=== PATIENT | female | born 1930 | race Caucasian/White ===

== ENCOUNTER 2019-07-04 15:39 | Inpatient (IN) | END 2019-11-22 23:59 | disposition still patient (30) | DRG 167 | DX: J96.21 Acute and chronic respiratory failure with hypoxia (principal); G93.1 Anoxic brain damage, not elsewhere classified; Z99.11 Dependence on respirator [ventilator] status; N39.0 Urinary tract infection, site not specified; J96.22 Acute and chronic respiratory failure with hypercapnia; I25.10 Atherosclerotic heart disease of native coronary artery without angina pectoris; E03.9 Hypothyroidism, unspecified; Z93.1 Gastrostomy status; Z93.0 Tracheostomy status; Z86.74 Personal history of sudden cardiac arrest; Z95.5 Presence of coronary angioplasty implant and graft; B96.4 Proteus (mirabilis) (morganii) as the cause of diseases classified elsewhere; B96.5 Pseudomonas (aeruginosa) (mallei) (pseudomallei) as the cause of diseases classified elsewhere; D64.9 Anemia, unspecified; E11.9 Type 2 diabetes mellitus without complications; Z79.4 Long term (current) use of insulin; E66.9 Obesity, unspecified; E78.5 Hyperlipidemia, unspecified; I11.0 Hypertensive heart disease with heart failure; I50.9 Heart failure, unspecified; I70.0 Atherosclerosis of aorta; E05.90 Thyrotoxicosis, unspecified without thyrotoxic crisis or storm; I80.8 Phlebitis and thrombophlebitis of other sites; N19 Unspecified kidney failure; I08.0 Rheumatic disorders of both mitral and aortic valves; R56.9 Unspecified convulsions; L89.151 Pressure ulcer of sacral region, stage 1; L89.319 Pressure ulcer of right buttock, unspecified stage; R13.10 Dysphagia, unspecified; Z79.899 Other long term (current) drug therapy; Z88.0 Allergy status to penicillin; Z96.653 Presence of artificial knee joint, bilateral ==

== ENCOUNTER 2019-11-24 16:46 | Inpatient (IN) | payer MEDICARE, OTHER ==
[~2019-11-24] VITALS: Ht 152.4 cm; Wt 73.0 kg
[2019-11-24 17:44] LABS: *BILIRUBIN,URIN NEGATIVE (NEGATIVE); *BLOOD, URINE 2+ (NEGATIVE); *COLOR,URINE YELLOW (YELLOW); *KETONES,URINE NEGATIVE (NEGATIVE); *UROBILINOGEN,URINE 0.2 E.U./dl (NORMAL); LEUKOCYTE ESTERASE ,URINE 2+ (NEGATIVE); NITRITE, URINE NEGATIVE (NEGATIVE); PH,URINE 6.5 (5.0-8.0); UGLUCOSE NEGATIVE (NEGATIVE)
[2019-11-24] MEDS ORDERED: IV NORMAL SALINE 1000 ML BAG IV ONE (17:45)
[2019-11-24 17:46] LABS: BASOPHILS % (AUTO) 0.4 % (0.0-2.0); EOSINOPHILS # (AUTO) 0.4 K/uL (0.0-0.7); EOSINOPHILS % (AUTO) 3.4 % (0.0-7.0); HEMATOCRIT 28.2 % (31.2-41.9); HEMOGLOBIN 9.4 g/dL (10.9-14.3); LYMPHOCYTES % (AUTO) 17.5 % (20.5-51.5); MEAN CORPUSCULAR HEMOGLOBIN 31.8 uug (24.7-32.8); MEAN CORPUSCULAR HGB CONC 33 g/dL (32.3-35.6); MEAN CORPUSCULAR VOLUME 95.4 fL (75.5-95.3); MONOCYTES % (AUTO) 8.6 % (0.0-11.0); NEUTROPHILS # (AUTO) 8.2 K/uL (1.8-8.9); NEUTROPHILS % (AUTO) 70.1 % (38.5-71.5); PLATELET COUNT (AUTO) 241 K/uL (179-408); RED BLOOD CELL COUNT(AUTO) 2.96 MIL/uL (3.63-4.92); WHITE BLOOD COUNT (AUTO) 11.7 K/uL (3.8-11.8)
[2019-11-24 17:52] LABS: BILIRUBIN,DIRECT 0.1 mg/dL (0.0-0.2); BILIRUBIN,TOTAL 0.2 mg/dL (0.2-1.0); CREATININE 0.9 mg/dL (0.6-1.3); POTASSIUM 4.2 mmol/L (3.5-5.1); TOTAL PROTEIN, SERUM 6.6 g/dL (6.4-8.2)
[2019-11-24 18:04] LABS: *CLARITY,URINE HAZY (CLEAR)
[2019-11-24 18:05] LABS: BACTERIA,URINE FEW /HPF (NONE SEEN); SQUAMOUS EPITHELIAL CELL,UR MODERATE /HPF (NONE SEEN); WBC,URINE 20-50 /HPF (0-3)
[2019-11-24] MEDS ORDERED: ALBU2.5V13 IH (18:40)
[2019-11-24] MEDS ORDERED: HYDR1SOL TP ×2 (18:40)
[2019-11-24] MEDS ORDERED: INSU100V28 SQ (18:40)
[2019-11-24] MEDS ORDERED: IPRA0.2S48 NEB ×2 (18:40)
[2019-11-24] MEDS ORDERED: ALBU2.5V13 NEB (18:40)
[2019-11-24] MEDS ORDERED: ONDA4TAB11 GT (18:40)
[2019-11-24] MEDS ORDERED: MODA100T29 GT (18:40)
[2019-11-24] MEDS ORDERED: MUPI1OIN5 (18:40)
[2019-11-24] MEDS ORDERED: METH5POW5 GT (18:40)
[2019-11-24] MEDS ORDERED: CARV3.122 GT (18:40)
[2019-11-24] MEDS ORDERED: NEOM1PAC2 TP (18:40)
[2019-11-24] MEDS ORDERED: ZINC113P3 TP ×2 (18:40)
[2019-11-24] MEDS ORDERED: AMIO200T6 GT (18:40)
[2019-11-24] MEDS ORDERED: PROT30LI GT (18:40)
[2019-11-24] MEDS ORDERED: ATOR20TA GT (18:40)
[2019-11-24] MEDS ORDERED: FAMO20TA8 GT (18:40)
[2019-11-24] MEDS ORDERED: FURO40SO5 GT (18:40)
[2019-11-24] MEDS ORDERED: MODA200T44 GT (18:40)
[2019-11-24] MEDS ORDERED: KETO120S6 TP (18:40)
[2019-11-24] MEDS ORDERED: ASCO-375 GT (18:40)
[2019-11-24] MEDS ORDERED: DOCU100T2 GT (18:40)
[2019-11-24] MEDS ORDERED: LACT1TAB13 GT (18:40)
[2019-11-24] MEDS ORDERED: ARGI1PAC GT (18:40)
[2019-11-24] MEDS ORDERED: vanco (18:40)
[2019-11-24] MEDS ORDERED: BLOO-360 IN (18:40)
[2019-11-24] MEDS ORDERED: INSU100V7 SQ (18:40)
[2019-11-24] MEDS ORDERED: POLY1GRA GT (18:40)
[2019-11-24] MEDS ORDERED: DEXT50VI3 IV (18:40)
[2019-11-24] MEDS ORDERED: ACET160S2 GT ×2 (18:40)
[2019-11-24] MEDS ORDERED: CLOP75TA33 GT (18:40)
[2019-11-24] MEDS ORDERED: VANC500V3 IV (18:40)
[2019-11-24] MEDS ORDERED: [UNRECOGNIZED DRUG - CODE] GT (18:40)
[2019-11-24] MEDS ORDERED: SIME80TA15 GT (18:40)
[2019-11-24] MEDS ORDERED: ENOX30DI5 SQ (18:40)
[2019-11-24] MEDS ORDERED: FERR325T6 GT (18:40)
[2019-11-24] MEDS ORDERED: SPIR25TA6 GT (18:40)
[2019-11-24 20:00] VITALS: BP 122/60
[2019-11-24] MEDS ORDERED: ALBUTEROL SULFATE 2.5 MG/ 0.5 ML NEBU NEB PRN (21:15)
[2019-11-24] MEDS ORDERED: ONDANSETRON 4 MG/2 ML VIAL IV PRN (21:15)
[2019-11-24] MEDS ORDERED: MAGNESIUM HYDROXIDE 30 ML LIQUID UDC PO PRN (21:15)
[2019-11-24] MEDS ORDERED: HYDROCODONE/APAP 5-325MG TABLET PO PRN (21:15)
[2019-11-24] MEDS ORDERED: Z GUARD REMEDY PASTE 57 GM TUBE TOP PRN (21:15)
[2019-11-24] MEDS ORDERED: ZOLPIDEM 5 MG TABLET PO PRN (21:15)
[2019-11-24] MEDS ORDERED: IPRATROPIUM BROMIDE 0.5 MG/2.5 ML NEBU NEB PRN (21:15)
[2019-11-24] MEDS ORDERED: DEXTROSE 50% 50 ML DISP.SYRIN IV PRN (21:30)
[2019-11-24] MEDS: IV D5/ 0.9% NACL 1,000 ML IV PRN (21:52)
[2019-11-24 22:00] VITALS: BP 113/59
[2019-11-24] MEDS ORDERED: VANCOMYCIN IV 1,000 MG in IV DEXTROSE 5% 250 ML IV ONE (23:00)
[2019-11-24] MEDS: IPRATROPIUM BROMIDE 0.5 MG/2.5 ML NEBU NEB SCH (23:12)
[2019-11-25] VITALS (12 sets, daily range): BP systolic 89–122; BP diastolic 47–65
[2019-11-25] MEDS ORDERED: BLOOD SUGAR DIAGNOSTIC 1 EACH STRIP VI SCH
[2019-11-25] MEDS ORDERED: INSULIN REGULAR, HUMAN 300 UNIT/3 ML VIAL ONE (00:03)
[2019-11-25] MEDS ORDERED: VANCOMYCIN IV 200 ML ONE (00:03)
[2019-11-25] MEDS ORDERED: SIMETHICONE 80 MG TAB.CHEW ONE ×2 (00:07→05:27)
[2019-11-25] MEDS: SIMETHICONE 80 MG TAB.CHEW GT SCH ×4 (00:11→18:14)
[2019-11-25] MEDS: BLOOD SUGAR DIAGNOSTIC 1 EACH STRIP VI SCH ×4 (00:14→18:15)
[2019-11-25] MEDS: INSULIN REGULAR, HUMAN 300 UNIT/3 ML VIAL SQ PRN ×5 (00:17→22:02)
[2019-11-25] MEDS: ALBUTEROL SULFATE 2.5 MG/ 0.5 ML NEBU IH SCH ×6 (00:42→23:30)
[2019-11-25] MEDS: IPRATROPIUM BROMIDE 0.5 MG/2.5 ML NEBU NEB SCH ×4 (05:06→20:14)
[2019-11-25 05:23] LABS: BASOPHILS # (AUTO) 0.1 K/uL (0.0-8.0); BASOPHILS % (AUTO) 0.4 % (0.0-2.0); EOSINOPHILS # (AUTO) 0.3 K/uL (0.0-0.7); EOSINOPHILS % (AUTO) 2.4 % (0.0-7.0); HEMATOCRIT 27.4 % (31.2-41.9); HEMOGLOBIN 9.1 g/dL (10.9-14.3); LYMPHOCYTES # (AUTO) 1.6 K/uL (20.0-40.0); LYMPHOCYTES % (AUTO) 13.5 % (20.5-51.5); MEAN CORPUSCULAR HEMOGLOBIN 31.1 uug (24.7-32.8); MEAN CORPUSCULAR HGB CONC 33 g/dL (32.3-35.6); MEAN CORPUSCULAR VOLUME 93.9 fL (75.5-95.3); MONOCYTES # (AUTO) 0.9 K/uL (2.0-10.0); MONOCYTES % (AUTO) 8.1 % (0.0-11.0); NEUTROPHILS # (AUTO) 8.8 K/uL (1.8-8.9); NEUTROPHILS % (AUTO) 75.6 % (38.5-71.5); PLATELET COUNT (AUTO) 251 K/uL (179-408); RED BLOOD CELL COUNT(AUTO) 2.92 MIL/uL (3.63-4.92); WHITE BLOOD COUNT (AUTO) 11.6 K/uL (3.8-11.8)
[2019-11-25] MEDS: FAMOTIDINE 20 MG TABLET GT SCH (05:32)
[2019-11-25 05:40] LABS: CREATININE 0.7 mg/dL (0.6-1.3); MAGNESIUM 2.5 mg/dL (1.8-2.4); PHOSPHOROUS 3.6 mg/dL (2.5-4.9); POTASSIUM 3.7 mmol/L (3.5-5.1)
[2019-11-25] MEDS ORDERED: METHIMAZOLE GT SCH (06:00)
[2019-11-25 06:36] LABS: *OCCULT BLOOD STOOL POSITIVE (NEGATIVE)
[2019-11-25] MEDS ORDERED: KETOCONAZOLE 2% SHAMPOO 120 ML BOTTLE TP SCH (09:00)
[2019-11-25] MEDS: METHIMAZOLE 5 MG TABLET GT SCH (09:07)
[2019-11-25] MEDS: PANTOPRAZOLE SODIUM 40 MG VIAL IV SCH ×2 (09:07→21:55)
[2019-11-25] MEDS: SPIRONOLACTONE 25 MG TABLET GT SCH (09:07)
[2019-11-25] MEDS: AMIODARONE HCL 200 MG TABLET GT SCH (09:08)
[2019-11-25] MEDS: CARVEDILOL 3.125 MG TABLET GT SCH ×2 (09:08→18:14)
[2019-11-25] MEDS: IV D5/ 0.9% NACL 1,000 ML IV PRN (20:16)
[2019-11-25] MEDS: ASCORBIC ACID 500 MG TABLET GT SCH (21:56)
[2019-11-25] MEDS: ATORVASTATIN 20 MG TABLET GT SCH (21:56)
[2019-11-25] MEDS: MUPIROCIN 2% OINT 22 GM TUBE TP SCH (21:57)
[2019-11-25] MEDS: KETOCONAZOLE 2% CREAM 30 GM TUBE TP SCH (21:57)
[2019-11-25] MEDS: INSULIN GLARGINE,HUM 300 UNITS/3 ML CARTRIDGE SQ SCH (22:04)
[2019-11-26] VITALS (8 sets, daily range): BP systolic 108–120; BP diastolic 51–68
[2019-11-26] MEDS: IPRATROPIUM BROMIDE 0.5 MG/2.5 ML NEBU NEB SCH ×7 (00:33→23:23)
[2019-11-26] MEDS: SIMETHICONE 80 MG TAB.CHEW GT SCH (00:43)
[2019-11-26] MEDS: BLOOD SUGAR DIAGNOSTIC 1 EACH STRIP VI SCH ×4 (00:44→17:27)
[2019-11-26] MEDS: INSULIN REGULAR, HUMAN 300 UNIT/3 ML VIAL SQ PRN ×3 (00:47→17:29)
[2019-11-26] MEDS: ALBUTEROL SULFATE 2.5 MG/ 0.5 ML NEBU IH SCH ×6 (02:50→23:24)
[2019-11-26] MEDS: METHIMAZOLE 5 MG TABLET GT SCH (05:17)
[2019-11-26] MEDS: FAMOTIDINE 20 MG TABLET GT SCH (05:18)
[2019-11-26 05:21] LABS: BASOPHILS % (AUTO) 0.5 % (0.0-2.0); EOSINOPHILS # (AUTO) 0.2 K/uL (0.0-0.7); EOSINOPHILS % (AUTO) 1.8 % (0.0-7.0); HEMATOCRIT 25.5 % (31.2-41.9); HEMOGLOBIN 8.6 g/dL (10.9-14.3); LYMPHOCYTES # (AUTO) 1.6 K/uL (20.0-40.0); LYMPHOCYTES % (AUTO) 15.4 % (20.5-51.5); MEAN CORPUSCULAR HEMOGLOBIN 31.9 uug (24.7-32.8); MEAN CORPUSCULAR HGB CONC 34 g/dL (32.3-35.6); MEAN CORPUSCULAR VOLUME 94.3 fL (75.5-95.3); MONOCYTES # (AUTO) 0.8 K/uL (2.0-10.0); MONOCYTES % (AUTO) 7.8 % (0.0-11.0); NEUTROPHILS # (AUTO) 7.9 K/uL (1.8-8.9); NEUTROPHILS % (AUTO) 74.5 % (38.5-71.5); PLATELET COUNT (AUTO) 280 K/uL (179-408); RED BLOOD CELL COUNT(AUTO) 2.71 MIL/uL (3.63-4.92); WHITE BLOOD COUNT (AUTO) 10.6 K/uL (3.8-11.8)
[2019-11-26 05:36] LABS: CREATININE 0.6 mg/dL (0.6-1.3); MAGNESIUM 2.2 mg/dL (1.8-2.4); PHOSPHOROUS 3.3 mg/dL (2.5-4.9); POTASSIUM 3.6 mmol/L (3.5-5.1); VANCOMYCIN,RANDOM 19.6 ug/mL (18.0-26.0)
[2019-11-26 07:45] LABS: ABG BASE EXCESS 1.6 mmol/L; ABG HCO3 24.5 mmol/L; ABG PCO2 31.5 mmHg (35.0-45.0); ABG PH 7.509 (7.350-7.450); ABG SITE LEFT RADIAL; ABG TOTAL HEMOGLOBIN 8.3 G/dL (12.0-16.0); COHb 1.3 % (0.5-1.5); MetHb 0.4 % (0.0-1.5); O2Hb 94.8 % (94.0-97.0); VENT MODE VENT - A/C; VT, ABG 450 mL
[2019-11-26] MEDS: CARVEDILOL 3.125 MG TABLET GT SCH ×2 (09:15→17:27)
[2019-11-26] MEDS: SPIRONOLACTONE 25 MG TABLET GT SCH (09:16)
[2019-11-26] MEDS: AMIODARONE HCL 200 MG TABLET GT SCH (09:16)
[2019-11-26] MEDS: PANTOPRAZOLE SODIUM 40 MG VIAL IV SCH ×2 (09:16→21:59)
[2019-11-26] MEDS: MUPIROCIN 2% OINT 22 GM TUBE TP SCH ×2 (09:17→22:11)
[2019-11-26] MEDS: KETOCONAZOLE 2% CREAM 30 GM TUBE TP SCH ×2 (09:17→22:11)
[2019-11-26] MEDS: IV D5/ 0.9% NACL 1,000 ML IV PRN (15:43)
[2019-11-26] MEDS: VANCOMYCIN IV 1,000 MG in IV DEXTROSE 5% 250 ML IV SCH (17:02)
[2019-11-26] MEDS: ATORVASTATIN 20 MG TABLET GT SCH (22:00)
[2019-11-26] MEDS: ASCORBIC ACID 500 MG TABLET GT SCH (22:00)
[2019-11-26] MEDS: INSULIN GLARGINE,HUM 300 UNITS/3 ML CARTRIDGE SQ SCH (22:10)
[2019-11-27 00:22] VITALS: BP 120/52
[2019-11-27] MEDS: BLOOD SUGAR DIAGNOSTIC 1 EACH STRIP VI SCH ×4 (00:48→18:53)
[2019-11-27 04:00] VITALS: BP 107/49
[2019-11-27] MEDS: IPRATROPIUM BROMIDE 0.5 MG/2.5 ML NEBU NEB SCH ×5 (04:10→22:21)
[2019-11-27] MEDS: ALBUTEROL SULFATE 2.5 MG/ 0.5 ML NEBU IH SCH ×5 (04:11→22:21)
[2019-11-27] MEDS: METHIMAZOLE 5 MG TABLET GT SCH (05:47)
[2019-11-27] MEDS: FAMOTIDINE 20 MG TABLET GT SCH (05:47)
[2019-11-27 06:20] LABS: BASOPHILS # (AUTO) 0.1 K/uL (0.0-8.0); BASOPHILS % (AUTO) 0.5 % (0.0-2.0); EOSINOPHILS # (AUTO) 0.2 K/uL (0.0-0.7); EOSINOPHILS % (AUTO) 2.2 % (0.0-7.0); HEMATOCRIT 25.5 % (31.2-41.9); HEMOGLOBIN 8.6 g/dL (10.9-14.3); LYMPHOCYTES # (AUTO) 1.5 K/uL (20.0-40.0); LYMPHOCYTES % (AUTO) 15.4 % (20.5-51.5); MEAN CORPUSCULAR HEMOGLOBIN 32.2 uug (24.7-32.8); MEAN CORPUSCULAR HGB CONC 34 g/dL (32.3-35.6); MEAN CORPUSCULAR VOLUME 95.2 fL (75.5-95.3); MONOCYTES # (AUTO) 0.9 K/uL (2.0-10.0); MONOCYTES % (AUTO) 9.1 % (0.0-11.0); NEUTROPHILS # (AUTO) 7.3 K/uL (1.8-8.9); NEUTROPHILS % (AUTO) 72.8 % (38.5-71.5); PLATELET COUNT (AUTO) 324 K/uL (179-408); RED BLOOD CELL COUNT(AUTO) 2.68 MIL/uL (3.63-4.92); WHITE BLOOD COUNT (AUTO) 10.1 K/uL (3.8-11.8)
[2019-11-27 06:34] LABS: CREATININE 0.6 mg/dL (0.6-1.3); MAGNESIUM 2.2 mg/dL (1.8-2.4); PHOSPHOROUS 3.6 mg/dL (2.5-4.9); POTASSIUM 3.5 mmol/L (3.5-5.1)
[2019-11-27 08:00] VITALS: BP 121/49
[2019-11-27] MEDS: CARVEDILOL 3.125 MG TABLET GT SCH ×2 (08:00→18:53)
[2019-11-27] MEDS: MUPIROCIN 2% OINT 22 GM TUBE TP SCH ×2 (09:00→23:29)
[2019-11-27] MEDS: KETOCONAZOLE 2% CREAM 30 GM TUBE TP SCH ×2 (10:30→23:30)
[2019-11-27] MEDS: PANTOPRAZOLE SODIUM 40 MG VIAL IV SCH ×2 (10:58→21:00)
[2019-11-27] MEDS: SPIRONOLACTONE 25 MG TABLET GT SCH (10:58)
[2019-11-27] MEDS: AMIODARONE HCL 200 MG TABLET GT SCH (10:58)
[2019-11-27] MEDS ORDERED: DIATR MEGLU/DIATRIZOATE SODIUM 30 ML SOLUTION ONE (11:13)
[2019-11-27 11:50] VITALS: BP 124/55
[2019-11-27 14:07] LABS: *BILIRUBIN,URIN NEGATIVE (NEGATIVE); *BLOOD, URINE 3+ (NEGATIVE); *CLARITY,URINE SLIGHTLY CLOUDY (CLEAR); *COLOR,URINE YELLOW (YELLOW); *KETONES,URINE NEGATIVE (NEGATIVE); LEUKOCYTE ESTERASE ,URINE 3+ (NEGATIVE); NITRITE, URINE NEGATIVE (NEGATIVE); PH,URINE 7.5 (5.0-8.0); UGLUCOSE NEGATIVE (NEGATIVE)
[2019-11-27 14:34] LABS: BACTERIA,URINE MANY /HPF (NONE SEEN); RBC,URINE 20-50 /HPF (0-3); SQUAMOUS EPITHELIAL CELL,UR FEW /HPF (NONE SEEN); TRIPLE PHOSPHATE CRYSTAL,UR FEW /HPF (NONE SEEN); WBC,URINE 20-50 /HPF (0-3)
[2019-11-27] MEDS: IV D5/ 0.9% NACL 1,000 ML IV PRN (17:34)
[2019-11-27 18:00] VITALS: BP 106/54
[2019-11-27 20:39] VITALS: BP 126/59
[2019-11-27] MEDS: ASCORBIC ACID 500 MG TABLET GT SCH (20:59)
[2019-11-27] MEDS: ATORVASTATIN 20 MG TABLET GT SCH (20:59)
[2019-11-27] MEDS: VANCOMYCIN IV 1,000 MG in IV DEXTROSE 5% 250 ML IV SCH (21:02)
[2019-11-27] MEDS: INSULIN GLARGINE,HUM 300 UNITS/3 ML CARTRIDGE SQ SCH (21:17)
[2019-11-28] MEDS: IPRATROPIUM BROMIDE 0.5 MG/2.5 ML NEBU NEB SCH ×7 (00:08→22:53)
[2019-11-28] MEDS: ALBUTEROL SULFATE 2.5 MG/ 0.5 ML NEBU IH SCH ×7 (00:08→22:53)
[2019-11-28] MEDS: BLOOD SUGAR DIAGNOSTIC 1 EACH STRIP VI SCH ×4 (00:42→17:24)
[2019-11-28] MEDS: INSULIN REGULAR, HUMAN 300 UNIT/3 ML VIAL SQ PRN (00:49)
[2019-11-28 04:00] VITALS: BP 130/67
[2019-11-28 05:05] LABS: BASOPHILS # (AUTO) 0.1 K/uL (0.0-8.0); BASOPHILS % (AUTO) 0.8 % (0.0-2.0); EOSINOPHILS # (AUTO) 0.2 K/uL (0.0-0.7); EOSINOPHILS % (AUTO) 2.4 % (0.0-7.0); HEMATOCRIT 24.9 % (31.2-41.9); HEMOGLOBIN 8.4 g/dL (10.9-14.3); LYMPHOCYTES # (AUTO) 1.3 K/uL (20.0-40.0); LYMPHOCYTES % (AUTO) 13.1 % (20.5-51.5); MEAN CORPUSCULAR HEMOGLOBIN 31.8 uug (24.7-32.8); MEAN CORPUSCULAR HGB CONC 34 g/dL (32.3-35.6); MEAN CORPUSCULAR VOLUME 94.7 fL (75.5-95.3); MONOCYTES # (AUTO) 0.9 K/uL (2.0-10.0); MONOCYTES % (AUTO) 8.8 % (0.0-11.0); NEUTROPHILS # (AUTO) 7.4 K/uL (1.8-8.9); NEUTROPHILS % (AUTO) 74.9 % (38.5-71.5); PLATELET COUNT (AUTO) 330 K/uL (179-408); RED BLOOD CELL COUNT(AUTO) 2.62 MIL/uL (3.63-4.92); WHITE BLOOD COUNT (AUTO) 9.9 K/uL (3.8-11.8)
[2019-11-28 05:10] LABS: CREATININE 0.6 mg/dL (0.6-1.3); PHOSPHOROUS 3.3 mg/dL (2.5-4.9); POTASSIUM 3.4 mmol/L (3.5-5.1)
[2019-11-28] MEDS: METHIMAZOLE 5 MG TABLET GT SCH (05:48)
[2019-11-28] MEDS: MUPIROCIN 2% OINT 22 GM TUBE TP SCH ×2 (07:51→20:56)
[2019-11-28] MEDS: KETOCONAZOLE 2% CREAM 30 GM TUBE TP SCH ×2 (07:51→20:58)
[2019-11-28] MEDS: PANTOPRAZOLE SODIUM 40 MG VIAL IV SCH ×2 (07:51→20:53)
[2019-11-28] MEDS: AMIODARONE HCL 200 MG TABLET GT SCH (07:54)
[2019-11-28] MEDS: CARVEDILOL 3.125 MG TABLET GT SCH ×2 (07:54→17:04)
[2019-11-28 08:00] VITALS: BP 139/79
[2019-11-28] MEDS: SPIRONOLACTONE 25 MG TABLET GT SCH (08:38)
[2019-11-28 12:00] VITALS: BP 135/66
[2019-11-28] MEDS ORDERED: BUMETANIDE INJ 6 MG in IV DEXTROSE 5% 36 ML IV ONE (12:45)
[2019-11-28 16:00] VITALS: BP 147/54
[2019-11-28] MEDS ORDERED: POTASSIUM CHLORIDE 20 MEQ POWDER PACKET GT ONE (17:00)
[2019-11-28] MEDS: GENTAMICIN SULFATE INJ 80 MG in IV DEXTROSE 5% 50 ML IV SCH (17:03)
[2019-11-28 20:00] VITALS: BP 131/69
[2019-11-28] MEDS: ATORVASTATIN 20 MG TABLET GT SCH (20:53)
[2019-11-28] MEDS: ASCORBIC ACID 500 MG TABLET GT SCH (20:53)
[2019-11-28] MEDS: INSULIN GLARGINE,HUM 300 UNITS/3 ML CARTRIDGE SQ SCH (20:55)
[2019-11-28] MEDS: VANCOMYCIN IV 1,000 MG in IV DEXTROSE 5% 250 ML IV SCH (23:51)
[2019-11-29] VITALS: BP 139/73
[2019-11-29] MEDS: BLOOD SUGAR DIAGNOSTIC 1 EACH STRIP VI SCH ×5 (00:06→23:41)
[2019-11-29] MEDS: INSULIN REGULAR, HUMAN 300 UNIT/3 ML VIAL SQ PRN ×3 (00:08→17:48)
[2019-11-29] MEDS: IPRATROPIUM BROMIDE 0.5 MG/2.5 ML NEBU NEB SCH ×6 (03:26→22:43)
[2019-11-29] MEDS: ALBUTEROL SULFATE 2.5 MG/ 0.5 ML NEBU IH SCH ×6 (03:26→22:43)
[2019-11-29 04:00] VITALS: BP 133/74
[2019-11-29 05:13] LABS: BASOPHILS # (AUTO) 0.1 K/uL (0.0-8.0); BASOPHILS % (AUTO) 0.6 % (0.0-2.0); EOSINOPHILS # (AUTO) 0.2 K/uL (0.0-0.7); EOSINOPHILS % (AUTO) 2.1 % (0.0-7.0); HEMATOCRIT 28.2 % (31.2-41.9); HEMOGLOBIN 9.4 g/dL (10.9-14.3); LYMPHOCYTES # (AUTO) 1.2 K/uL (20.0-40.0); LYMPHOCYTES % (AUTO) 11.7 % (20.5-51.5); MEAN CORPUSCULAR HEMOGLOBIN 31.8 uug (24.7-32.8); MEAN CORPUSCULAR HGB CONC 33 g/dL (32.3-35.6); MEAN CORPUSCULAR VOLUME 95.1 fL (75.5-95.3); MONOCYTES # (AUTO) 0.9 K/uL (2.0-10.0); MONOCYTES % (AUTO) 9.2 % (0.0-11.0); NEUTROPHILS # (AUTO) 7.7 K/uL (1.8-8.9); NEUTROPHILS % (AUTO) 76.4 % (38.5-71.5); PLATELET COUNT (AUTO) 367 K/uL (179-408); RED BLOOD CELL COUNT(AUTO) 2.97 MIL/uL (3.63-4.92)
[2019-11-29] MEDS: IV D5/ 0.9% NACL 1,000 ML IV PRN (05:20)
[2019-11-29] MEDS: METHIMAZOLE 5 MG TABLET GT SCH (05:38)
[2019-11-29 05:50] LABS: CREATININE 0.7 mg/dL (0.6-1.3); MAGNESIUM 1.9 mg/dL (1.8-2.4); PHOSPHOROUS 3.2 mg/dL (2.5-4.9); POTASSIUM 3.1 mmol/L (3.5-5.1)
[2019-11-29 08:00] VITALS: BP 122/54
[2019-11-29] MEDS: CARVEDILOL 3.125 MG TABLET GT SCH ×2 (08:19→17:29)
[2019-11-29] MEDS: PANTOPRAZOLE SODIUM 40 MG VIAL IV SCH ×2 (08:19→21:23)
[2019-11-29] MEDS: AMIODARONE HCL 200 MG TABLET GT SCH (08:19)
[2019-11-29] MEDS: SPIRONOLACTONE 25 MG TABLET GT SCH (08:19)
[2019-11-29] MEDS: MUPIROCIN 2% OINT 22 GM TUBE TP SCH ×2 (08:21→21:36)
[2019-11-29] MEDS: KETOCONAZOLE 2% CREAM 30 GM TUBE TP SCH ×2 (08:21→21:36)
[2019-11-29] MEDS ORDERED: POTASSIUM CHLORIDE 20 MEQ POWDER PACKET GT ONE (10:00)
[2019-11-29 10:15] LABS: ABG BASE EXCESS -1.1 mmol/L; ABG HCO3 21.6 mmol/L; ABG PCO2 28.5 mmHg (35.0-45.0); ABG PH 7.498 (7.350-7.450); ABG PO2 83.3 mmHg (75.0-100.0); ABG SITE RIGHT RADIAL; ABG TOTAL HEMOGLOBIN 8.1 G/dL (12.0-16.0); COHb 1.9 % (0.5-1.5); MetHb 0.3 % (0.0-1.5); O2Hb 94.9 % (94.0-97.0); VENT MODE VENT - A/C 12; VT, ABG 400 mL
[2019-11-29 12:00] VITALS: BP 129/53
[2019-11-29 16:00] VITALS: BP 107/74
[2019-11-29] MEDS: GENTAMICIN SULFATE INJ 80 MG in IV DEXTROSE 5% 50 ML IV SCH (17:28)
[2019-11-29] MEDS ORDERED: GLUCERNA 1.2 1000ML LIQUID GT PRN (17:30)
[2019-11-29 20:30] VITALS: BP 134/41
[2019-11-29] MEDS: ASCORBIC ACID 500 MG TABLET GT SCH (21:23)
[2019-11-29] MEDS: INSULIN GLARGINE,HUM 300 UNITS/3 ML CARTRIDGE SQ SCH (21:25)
[2019-11-29] MEDS: ATORVASTATIN 20 MG TABLET GT SCH (21:34)
[2019-11-29] MEDS: ACETAMINOPHEN 325 MG TABLET PO PRN (23:44)
[2019-11-30] VITALS: BP 92/36
[2019-11-30] MEDS: IPRATROPIUM BROMIDE 0.5 MG/2.5 ML NEBU NEB SCH ×4 (02:41→14:44)
[2019-11-30] MEDS: ALBUTEROL SULFATE 2.5 MG/ 0.5 ML NEBU IH SCH ×4 (02:42→14:44)
[2019-11-30] MEDS: VANCOMYCIN IV 1,000 MG in IV DEXTROSE 5% 250 ML IV SCH (03:32)
[2019-11-30 04:00] VITALS: BP 110/68
[2019-11-30] MEDS: BLOOD SUGAR DIAGNOSTIC 1 EACH STRIP VI SCH ×2 (05:41→12:12)
[2019-11-30] MEDS: METHIMAZOLE 5 MG TABLET GT SCH (05:42)
[2019-11-30] MEDS: INSULIN REGULAR, HUMAN 300 UNIT/3 ML VIAL SQ PRN ×2 (05:49→12:13)
[2019-11-30 07:50] VITALS: BP 108/52
[2019-11-30] MEDS: CARVEDILOL 3.125 MG TABLET GT SCH (08:27)
[2019-11-30] MEDS: SPIRONOLACTONE 25 MG TABLET GT SCH (08:27)
[2019-11-30] MEDS: PANTOPRAZOLE SODIUM 40 MG VIAL IV SCH (08:27)
[2019-11-30] MEDS: AMIODARONE HCL 200 MG TABLET GT SCH (08:28)
[2019-11-30] MEDS: ACETAMINOPHEN 325 MG TABLET PO PRN (08:28)
[2019-11-30] MEDS: MUPIROCIN 2% OINT 22 GM TUBE TP SCH (08:29)
[2019-11-30] MEDS: KETOCONAZOLE 2% CREAM 30 GM TUBE TP SCH (08:30)
[2019-11-30 12:15] VITALS: BP 122/53
[2019-11-30] MEDS: GENTAMICIN SULFATE INJ 80 MG in IV DEXTROSE 5% 50 ML IV SCH (15:27)
[2019-11-30] MEDS ORDERED: PROPOFOL 200 MG/20 ML BOTTLE IV ONE (16:54)
[2019-11-30] MEDS ORDERED: IV NORMAL SALINE 1000 ML BAG IV ONE (16:54)
[2019-11-30] MEDS ORDERED: EPHEDRINE SULFATE 50 MG/ML AMPUL IM ONE (16:54)
[2019-11-30] MEDS ORDERED: IRR STERIL WATER FOR IRR 1000 ML BOTTLE IR ONE (16:54)
== END 2019-11-30 16:55 | DRG 378 ==
LOC: ER 16:46 → CCU 18:30 → TELE-TD3 11-26 08:10 → CCU 11-28 01:18 → TELE 11-29 20:01 → TELE3 11-29 20:05 → TELE-TD3 11-29 20:08
PROVIDERS: ADMIT Internal Medicine; ATTEND Internal Medicine
PROC: 5A1955Z Respiratory Ventilation, Greater than 96 Consecutive Hours (ICD-10-PCS; principal; 2019-11-24)
PROC: 05H933Z Insertion of Infusion Device into Right Brachial Vein, Percutaneous Approach (ICD-10-PCS; 2019-11-25)
PROC: 0DB98ZX Excision of Duodenum, Via Natural or Artificial Opening Endoscopic, Diagnostic (ICD-10-PCS; 2019-11-27)
PROC: 0W9B3ZX Drainage of Left Pleural Cavity, Percutaneous Approach, Diagnostic (ICD-10-PCS; 2019-11-28)
DX: K29.81 Duodenitis with bleeding (principal); D62 Acute posthemorrhagic anemia; J98.19 Other pulmonary collapse; Z99.11 Dependence on respirator [ventilator] status; G93.1 Anoxic brain damage, not elsewhere classified; J96.12 Chronic respiratory failure with hypercapnia; J96.11 Chronic respiratory failure with hypoxia; J90 Pleural effusion, not elsewhere classified; N39.0 Urinary tract infection, site not specified; Z16.29 Resistance to other single specified antibiotic; Z93.0 Tracheostomy status; Z86.74 Personal history of sudden cardiac arrest; Z93.1 Gastrostomy status; K29.80 Duodenitis without bleeding; K44.9 Diaphragmatic hernia without obstruction or gangrene; I25.10 Atherosclerotic heart disease of native coronary artery without angina pectoris; Z95.5 Presence of coronary angioplasty implant and graft; B96.4 Proteus (mirabilis) (morganii) as the cause of diseases classified elsewhere; Z88.0 Allergy status to penicillin; Z82.49 Family history of ischemic heart disease and other diseases of the circulatory system; Z83.3 Family history of diabetes mellitus; R13.10 Dysphagia, unspecified; E87.6 Hypokalemia; E66.9 Obesity, unspecified; E78.5 Hyperlipidemia, unspecified; I11.0 Hypertensive heart disease with heart failure; I50.9 Heart failure, unspecified; L89.319 Pressure ulcer of right buttock, unspecified stage; E11.9 Type 2 diabetes mellitus without complications; E05.90 Thyrotoxicosis, unspecified without thyrotoxic crisis or storm; R56.9 Unspecified convulsions
CPT/HCPCS: 32555; 36415; 36600; 70030-TC; 71045; 76604; 83615; 83690; 83735; 83986; 84100; 84155; 85025; 85610; 85730; 87070; 87077; 87086; 87205; 93005; 94002; 94003; 94640; 94664; A4217; A4663; C9113; G0378; J1580; J1815; J3370; J3490; J3590; J7030; J7042; J7050; J7060; J7070; Q9963

== ENCOUNTER 2020-06-13 09:24 | Inpatient (IN) | payer MEDICARE, OTHER ==
[~2020-06-13] VITALS: Ht 147.3 cm; Wt 76.2 kg
--- NOTE | 2020-06-13 09:15 | NUR ---
ADMITTED FROM 4TH FLOOR [facility] SUB-ACUTE TO [id number] AN 89 YO FEMALE WITH ADM DX OF ANEMIA, CHF, GASTROCUTANEOUS FISTULA, VDRS, LOW K. OBTUNDED ON TRACH VIA VENT SHILEY 6, FIO2=2L/MIN BLEND, QO=934, AC-2, PEEP=5 ON CONTINUOUS PULSE OX SATURATING 100%. SR ON MONITOR 88/MIN. WARM AND DRY SKIN. ROUTINE ADMISSION ASSESSMENT INITIATED.
[~2020-06-13 09:24] MED LIST: ACET160S2 GT; ACET160S2 RC; ALBU2.5V13 IH; ALBU2.5V13 NEB; AMIO200T6 GT; ARGI1PAC GT; ASCO-375 GT; ATOR20TA GT; BLOO-360 IN; CARV3.122 GT; CLOP75TA33 GT; DEXT50VI3 IV; DOCU100T2 GT; ENOX30DI5 SQ; FAMO20TA8 GT; FERR325T6 GT; FURO40SO5 GT; HYDR1SOL TP; INSU100V28 SQ; INSU100V7 SQ; IPRA0.2S48 NEB; KETO120S6 TP; LACT1TAB13 GT; METH5POW5 GT; MODA100T29 GT; MODA200T44 GT; MUPI1OIN5; NEOM1PAC2 TP; ONDA4TAB11 GT; POLY1GRA GT; PROT30LI GT; SIME80TA15 GT; SPIR25TA6 GT; VANC500V3 IV; ZINC113P3 TP; [UNRECOGNIZED DRUG - CODE] GT
--- NOTE | 2020-06-13 09:48 | NUR ---
SEEN BY DR BULLARD DICTATED ADM. SUMMARY. SEE NOTES. WILL NOTIFY DR BERNAL OF ADMISSION
[2020-06-13] MEDS ORDERED: ALBU2.5V13 NEB (10:54)
[2020-06-13] MEDS ORDERED: COD56OIN TP (10:54)
[2020-06-13] MEDS ORDERED: TPN (10:54)
[2020-06-13] MEDS ORDERED: BLOO-668 IN (10:54)
[2020-06-13] MEDS ORDERED: CYCL30DR EACHEYE (10:54)
[2020-06-13] MEDS ORDERED: NEOM28OI22 TP (10:54)
[2020-06-13] MEDS ORDERED: HYDR1TOW4 TP (10:54)
[2020-06-13] MEDS ORDERED: ACET160T6 RC (10:54)
[2020-06-13] MEDS ORDERED: IPRA0.2S6 NEB (10:54)
[2020-06-13] MEDS ORDERED: DEXTROSE 50% 50 ML DISP.SYRIN IV PRN (11:00)
--- NOTE | 2020-06-13 11:00 | NUR ---
SEEN BY DR BERNAL FOR ADMISSION ORDERS, SEE NOTES
[2020-06-13] MEDS ORDERED: BUMETANIDE 1 MG/4 ML VIAL IV ONE (11:30)
[2020-06-13 12:00] VITALS: BP 149/59
[2020-06-13] MEDS: MAGNESIUM SULFATE/D5W 100 ML IV SCH ×3 (12:23→14:46)
[2020-06-13] MEDS: INSULIN REGULAR, HUMAN 300 UNIT/3 ML VIAL SQ PRN ×2 (12:36→17:31)
[2020-06-13] MEDS: BLOOD SUGAR DIAGNOSTIC 1 EACH STRIP VI SCH ×2 (12:37→17:32)
[2020-06-13] MEDS ORDERED: COD LIVER OIL/ZINC OXIDE OINT 113 GM TUBE TP PRN ×2 (13:45→14:30)
[2020-06-13] MEDS ORDERED: INSULIN REGULAR, HUMAN 300 UNIT/3 ML VIAL SQ PRN (13:45)
[2020-06-13] MEDS ORDERED: ALBUTEROL SULFATE 2.5 MG/ 0.5 ML NEBU NEB PRN (13:45)
[2020-06-13] MEDS ORDERED: IPRATROPIUM BROMIDE 0.5 MG/2.5 ML NEBU NEB PRN ×2 (13:45)
[2020-06-13] MEDS ORDERED: ONDANSETRON ODT 4 MG TAB.RAPDIS GT SCH (13:45)
[2020-06-13] MEDS ORDERED: POTASSIUM PHOSPHATE MM 15 MMOL in IV NORMAL SALINE 250 ML IV ONE (15:00)
[2020-06-13] MEDS: POTASSIUM CHLORIDE 50 ML IV SCH ×4 (15:38→19:24)
--- NOTE | 2020-06-13 15:48 | NUR ---
SON NOTIFIED OF NEED FOR CONSENT FOR EGD WITH FISTULA AND CLOSURE BY DR LIND AT 1200 06/14/20
[2020-06-13 16:00] VITALS: BP 120/57
[2020-06-13] MEDS: IPRATROPIUM BROMIDE 0.5 MG/2.5 ML NEBU NEB SCH ×3 (16:23→23:40)
[2020-06-13] MEDS: ALBUTEROL SULFATE 2.5 MG/ 0.5 ML NEBU NEB PRN (16:23)
[2020-06-13] MEDS ORDERED: BLOOD SUGAR DIAGNOSTIC 1 EACH STRIP VI SCH ×2 (18:00)
[2020-06-13] MEDS ORDERED: SIMETHICONE 80 MG TAB.CHEW GT SCH (18:00)
[2020-06-13] MEDS ORDERED: TPN BAG#7 IV SCH ×4 (18:00)
--- NOTE | 2020-06-13 19:00 | NUR ---
RECEIVED PATIENT IN BED, EYES OPEN, RESPOND TO PAINFUL AND TACTILE STIMULI. HOB ELEVATED, TRACH INTACT, S/S OF SOB NOR CHEST PAIN. PATIENT ON VENT TOLERATE WELL NO DESATURATION NOTED. PATIENT ALCALA CATH PATENT DRAINING WITH YELLOW COLOR WENDY COLOR. PATIENT OLD GT WOUND TX CONTINUE. R UPPER ARM PICC LINE PATENT, PATIENT HAS NO S/S OF DISTRESS. CONT TO MONITOR.
[2020-06-13 20:03] VITALS: BP 140/56
[2020-06-13] MEDS ORDERED: KETOCONAZOLE 2% SHAMPOO 120 ML BOTTLE TP SCH (21:00)
[2020-06-13] MEDS ORDERED: NEOMY/BACITRA/POLYMYXIN B OINT UD PACKET TP SCH (21:00)
[2020-06-13] MEDS ORDERED: ATORVASTATIN 20 MG TABLET GT SCH (21:00)
[2020-06-13] MEDS ORDERED: CLOPIDOGREL 75 MG TABLET GT SCH (21:00)
[2020-06-13] MEDS ORDERED: ASCORBIC ACID 500 MG TABLET GT SCH (21:00)
[2020-06-13] MEDS ORDERED: ENOXAPARIN SODIUM 30 MG/0.3 ML DISP.SYRIN SQ SCH (21:00)
[2020-06-13] MEDS ORDERED: CARVEDILOL 3.125 MG TABLET GT SCH (21:00)
[2020-06-13] MEDS: NEOMY/BACITRA/POLYMYXIN B OINT UD PACKET TP SCH (21:51)
--- NOTE | 2020-06-13 23:41 | NUR ---
PT ON CONT VENT HT [address] AND SECURED, WITH SAME CURRENT VENT SETTINGS, PT DOES ASIST AT TIMES, GOOD COUGH EFFORT, SUCTIONED LIGHT PALE YELL TINGE SECRETIONS, NO VENT CHANGES MADE, ALL VENT ALARMS OK, NEB INLINE WITH ATROVENT TOLL WELL, WITH PULSE OXY ON CONT - SAT 98-99%. Mariluz RICKETTS VENTILATION MECHANIC Addendum: 06/13/20 at 2347 by CORRINE RICKETTS RT Amended: Links added.
[2020-06-14] VITALS (8 sets, daily range): BP systolic 116–155; BP diastolic 41–71
[2020-06-14] MEDS: BLOOD SUGAR DIAGNOSTIC 1 EACH STRIP VI SCH ×4 (01:23→18:00)
[2020-06-14] MEDS: INSULIN REGULAR, HUMAN 300 UNIT/3 ML VIAL SQ PRN ×4 (01:25→18:01)
[2020-06-14] MEDS: IPRATROPIUM BROMIDE 0.5 MG/2.5 ML NEBU NEB SCH ×5 (04:50→20:00)
[2020-06-14] MEDS ORDERED: TPN BAG #8 IV SCH ×2 (06:00)
[2020-06-14] MEDS ORDERED: FAMOTIDINE 20 MG TABLET GT SCH (06:00)
[2020-06-14 06:33] LABS: BASOPHILS # (AUTO) 0.1 K/uL (0.0-8.0); BASOPHILS % (AUTO) 0.6 % (0.0-2.0); EOSINOPHILS # (AUTO) 0.2 K/uL (0.0-0.7); EOSINOPHILS % (AUTO) 1.6 % (0.0-7.0); HEMATOCRIT 30.3 % (31.2-41.9); LYMPHOCYTES # (AUTO) 1.2 K/uL (20.0-40.0); MEAN CORPUSCULAR HEMOGLOBIN 28.9 uug (24.7-32.8); MEAN CORPUSCULAR HGB CONC 33 g/dL (32.3-35.6); MEAN CORPUSCULAR VOLUME 87.3 fL (75.5-95.3); MONOCYTES # (AUTO) 0.7 K/uL (2.0-10.0); MONOCYTES % (AUTO) 6.9 % (0.0-11.0); NEUTROPHILS # (AUTO) 8.5 K/uL (1.8-8.9); NEUTROPHILS % (AUTO) 79.9 % (38.5-71.5); PLATELET COUNT (AUTO) 268 K/uL (179-408); RED BLOOD CELL COUNT(AUTO) 3.47 MIL/uL (3.63-4.92); WHITE BLOOD COUNT (AUTO) 10.7 K/uL (3.8-11.8)
[2020-06-14 06:48] LABS: MAGNESIUM 2.1 mg/dL (1.8-2.4)
--- NOTE | 2020-06-14 07:27 | NUR ---
Patient eyes open obtunded, no s/s of sob or chest pain. patient cont on ppn tolerate well. patient old gt site draining with black greenish fluid in small amount. Patient trach intact, suction q 2 hrs and prn, with whitish yellow secretions in moderate amount. Patient has generalized edema, kept arms elevated with pillow, rendered good skin care, boss cath patent with yellow, kiesha color urine in moderate amount. Patient on ventilator per setting, no s/s of desaturation, kept comfortable. cont to monitor.
[2020-06-14 07:36] LABS: CREATININE 0.8 mg/dL (0.6-1.3); POTASSIUM 3.5 mmol/L (3.5-5.1)
[2020-06-14] MEDS: ALBUTEROL SULFATE 2.5 MG/ 0.5 ML NEBU NEB PRN ×3 (07:51→14:36)
--- NOTE | 2020-06-14 07:51 | NUR ---
PT RECEIVED TRACH TO VENT ON CMV, SHILEY #6 TRACH IS PATENT AND SECURE. PT IS ON A HT-50 VENT ON SETTINGS OF A/C 12, VT 400, PEEP +5, 2LPM BLEED-IN O2. VENT PARAMETERS AND ALARMS CHECKED, ALARMS ARE AUDIBLE. PT IS TOLERATING VENT SETTINGS WELL, NO RESP. DISTRESS NOTED. IN-LINE TX TOLERATED WELL, NO ADVERSE REACTION NOTED. BVM AND BACK-UP TRACH AT BEDSIDE. VENT PLUGGED INTO RED OUTLET. SUCTION PRN. WILL CONTINUE TO MONITOR.
--- NOTE | 2020-06-14 08:00 | NUR ---
Patient in bed, trach tube intact and midline, connected to ventilator with settings AC 12 VT 400 Peep +5 FiO2 20%, No signs of distress noted. Afebrile. No signs of Pain or discomfort. patient will have EGD and closure of Fistula at 1PM under Dr. Rivera. TPN at 65cc/hr infusing well on SIN PICC, Kept clean and comfortable. Will continue to monitor.
[2020-06-14] MEDS ORDERED: AMIODARONE HCL 200 MG TABLET GT SCH (09:00)
[2020-06-14] MEDS ORDERED: SPIRONOLACTONE 25 MG TABLET GT SCH (09:00)
[2020-06-14] MEDS: NEOMY/BACITRA/POLYMYXIN B OINT UD PACKET TP SCH ×2 (09:05→21:00)
[2020-06-14 09:41] LABS: ABG BASE EXCESS -1.1 mmol/L; ABG HCO3 23.4 mmol/L; ABG PCO2 38.3 mmHg (35.0-45.0); ABG PH 7.404 (7.350-7.450); ABG PO2 109.8 mmHg (75.0-100.0); ABG SITE RIGHT RADIAL; ABG TOTAL HEMOGLOBIN 10.1 G/dL (12.0-16.0); COHb 0.7 % (0.5-1.5); MetHb 0.1 % (0.0-1.5); O2Hb 97.2 % (94.0-97.0); VENT MODE VENT - A/C; VT, ABG 400 mL
[2020-06-14] MEDS ORDERED: FUROSEMIDE 40 MG/4 ML VIAL IV ONE (12:30)
--- NOTE | 2020-06-14 12:52 | NUR ---
Patient was picked up for EGD with possible closure of Fistula.
[2020-06-14] MEDS ORDERED: MODAFINIL 100 MG TABLET GT SCH (13:00)
[2020-06-14] MEDS ORDERED: FENTANYL CITRATE 100 MCG/2 ML AMPUL ONE (13:12)
[2020-06-14] MEDS ORDERED: ETOMIDATE 20 MG/10 ML VIAL ONE (14:27)
[2020-06-14] MEDS ORDERED: IV NORMAL SALINE 1000 ML BAG ONE (14:27)
[2020-06-14] MEDS ORDERED: PHENYLEPHRINE 10 MG/1 ML VIAL ONE (14:27)
[2020-06-14] MEDS ORDERED: IV NORMAL SALINE 250 ML BAG IV ONE (14:27)
--- NOTE | 2020-06-14 14:42 | NUR ---
Per Dr. 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
--- NOTE | 2020-06-14 14:42 | NUR ---
Patient came back from Surgery in stable condition.
[2020-06-14] MEDS ORDERED: IV FAT EMULSIONS 20% 250 ML IV ONE ×2 (15:00)
[2020-06-14] MEDS ORDERED: TPN BAG #9 IV SCH ×4 (18:00)
--- NOTE | 2020-06-14 18:35 | NUR ---
patient in bed, Trach tube intact and midline. No signs of distress noted. NO SOB. NO signs of Pain or discomfort. Afebrile. S/P EGD with closure of fistula, TPN infusing well on SIN PICC. last Blood sugar was 149, 2 units given as per sliding scale. kept clean and comfortable. Will endorse to Oncoming Nurse.
--- NOTE | 2020-06-14 20:59 | NUR ---
Received patient from third floor Telemetry-TD. Patient is supine in bed with eyes open responsive only to stimuli, otherwise obtunded. Patient has a tracheostomy to vent with a Shiley #6, stoma looks clear, no secretions or signs of irritation or bleeding. Respiratory has set up a Lovell ventilator with settings AC 12, Vt400, FiO2 28%, PEEP 5. Patient connected to the bedside monitor and noted to be in Sinus Rhythm with notable ST segment depression, which on viewing of the ECG tracing on 06/13/2020, this abnormality was also present. MDs aware of ECG abnormality, no further action necessary. Patient has a left upper arm PICC line. Patient is currently receiving TPN infusion @65mL/hr and 20% IV Intralipid infusion running @10.417mL/hr. Patient has a Bryant catheter draining clear yellow fluid in adequate amounts. There is also a collection bag over the GT site fistula. Patient went for repair of this fistula earlier on in the day, however operating MD believes that despite his efforts, closure of the fistula was not likely to be successful. This fistula is currently draining small amounts of brown/yellow material of a viscous consistency. Patient is noted to be in stable condition. Plan of care to continue TPN nutrition, and monitoring GT fistula site for signs of breakdown from gastric contents. Dr. Zurita to consult with surgery on further plan of treatment for the GT fistula.
[2020-06-15] VITALS (24 sets, daily range): BP systolic 123–174; BP diastolic 50–88
[2020-06-15] MEDS: IPRATROPIUM BROMIDE 0.5 MG/2.5 ML NEBU NEB SCH ×7 (00:14→23:23)
[2020-06-15] MEDS: INSULIN REGULAR, HUMAN 300 UNIT/3 ML VIAL SQ PRN ×4 (00:19→23:53)
--- NOTE | 2020-06-15 00:19 | NUR ---
PT ON CONT CANCINO VENT WITH SHILEY [address] AND SECURED, WITH SAME CURRENT VENT SETTINGS, A/C 12, VT 400ML, 28%, PEEP 5, PT CAME TO CCU # 4 APPROX, 21:00, WITH RT ASSIST, SUCTIONED WHITISH TINGE SECRETIONS, AND ORAL CARE , CHANGE HME, AND FABIO CERON INLINE WITH ATROVENT TOLL WELL, ALL VENT ALARMS GOOD , VENT PLUGGED INTO RED OUTLET. Mariluz GONZALEZP Addendum: 06/15/20 at 0025 by CORRINE RICKETTS RT Amended: Links added.
[2020-06-15] MEDS: BLOOD SUGAR DIAGNOSTIC 1 EACH STRIP VI SCH ×5 (00:24→23:52)
[2020-06-15 05:24] LABS: CREATININE 0.7 mg/dL (0.6-1.3); MAGNESIUM 1.7 mg/dL (1.8-2.4); PHOSPHOROUS 2.5 mg/dL (2.5-4.9)
[2020-06-15 05:27] LABS: BASOPHILS # (AUTO) 0.1 K/uL (0.0-8.0); BASOPHILS % (AUTO) 0.6 % (0.0-2.0); EOSINOPHILS # (AUTO) 0.2 K/uL (0.0-0.7); EOSINOPHILS % (AUTO) 1.6 % (0.0-7.0); HEMATOCRIT 28.8 % (31.2-41.9); HEMOGLOBIN 9.7 g/dL (10.9-14.3); LYMPHOCYTES # (AUTO) 1.4 K/uL (20.0-40.0); LYMPHOCYTES % (AUTO) 9.8 % (20.5-51.5); MEAN CORPUSCULAR HEMOGLOBIN 28.9 uug (24.7-32.8); MEAN CORPUSCULAR HGB CONC 34 g/dL (32.3-35.6); MEAN CORPUSCULAR VOLUME 86.2 fL (75.5-95.3); MONOCYTES % (AUTO) 6.7 % (0.0-11.0); NEUTROPHILS # (AUTO) 11.5 K/uL (1.8-8.9); NEUTROPHILS % (AUTO) 81.3 % (38.5-71.5); PLATELET COUNT (AUTO) 148 K/uL (179-408); RED BLOOD CELL COUNT(AUTO) 3.34 MIL/uL (3.63-4.92); WHITE BLOOD COUNT (AUTO) 14.2 K/uL (3.8-11.8)
[2020-06-15 05:45] LABS: POTASSIUM 2.7 mmol/L (3.5-5.1)
[2020-06-15] MEDS ORDERED: TPN BAG #10 IV SCH ×2 (06:00)
--- NOTE | 2020-06-15 06:25 | NUR ---
Reported critical low potassium level to Dr. Sanchez. Order for 40mEq Potassium Chloride IV.
[2020-06-15] MEDS: POTASSIUM CHLORIDE 50 ML IV SCH ×4 (06:39→09:50)
--- NOTE | 2020-06-15 06:53 | NUR ---
Patient remains in stable condition. Remains on trach to vent, all settings the same. Gastrocutaneous fistula drained approximately 75mL during shift of brownish/yellow fluid. Collection bag did leak some due to the large round access on the front of the collection bag forming an improper sealed, and therefore some drainage did leak out. Bag was emptied, cleansed, and resealed to hopefully alleviate the leak. This appears to be more of a design flaw with the collection bag, and not human error. no apparent skin issues around the fistula. Patient remains very edematous with +3 pitting.
[2020-06-15] MEDS: ALBUTEROL SULFATE 2.5 MG/ 0.5 ML NEBU NEB PRN ×3 (08:27→15:54)
[2020-06-15] MEDS: NEOMY/BACITRA/POLYMYXIN B OINT UD PACKET TP SCH ×2 (09:24→21:37)
[2020-06-15] MEDS: MAGNESIUM SULFATE/D5W 100 ML IV SCH ×3 (11:52→13:55)
[2020-06-15] MEDS ORDERED: FUROSEMIDE 40 MG/4 ML VIAL IV ONE (12:00)
[2020-06-15] MEDS: POTASSIUM CHLORIDE 10 MEQ, LIDOCAINE-MPF 1% 1 ML in IV DEXTROSE 5% 100 ML IV SCH ×4 (16:03→19:31)
[2020-06-15] MEDS ORDERED: TPN BAG #11 IV SCH ×4 (18:00)
[2020-06-15] MEDS ORDERED: NEOMY/BACITRA/POLYMYXIN B OINT UD PACKET TP ONE (21:15)
[2020-06-16] VITALS (24 sets, daily range): BP systolic 116–176; BP diastolic 44–93
[2020-06-16] MEDS: ALBUTEROL SULFATE 2.5 MG/ 0.5 ML NEBU NEB PRN ×4 (03:37→23:48)
[2020-06-16] MEDS: IPRATROPIUM BROMIDE 0.5 MG/2.5 ML NEBU NEB SCH ×6 (03:37→23:48)
[2020-06-16 05:46] LABS: BASOPHILS # (AUTO) 0.1 K/uL (0.0-8.0); BASOPHILS % (AUTO) 0.7 % (0.0-2.0); EOSINOPHILS # (AUTO) 0.1 K/uL (0.0-0.7); HEMATOCRIT 28.9 % (31.2-41.9); HEMOGLOBIN 9.5 g/dL (10.9-14.3); LYMPHOCYTES # (AUTO) 0.9 K/uL (20.0-40.0); LYMPHOCYTES % (AUTO) 7.3 % (20.5-51.5); MEAN CORPUSCULAR HEMOGLOBIN 28.2 uug (24.7-32.8); MEAN CORPUSCULAR HGB CONC 33 g/dL (32.3-35.6); MONOCYTES # (AUTO) 1.2 K/uL (2.0-10.0); MONOCYTES % (AUTO) 9.2 % (0.0-11.0); NEUTROPHILS # (AUTO) 10.5 K/uL (1.8-8.9); NEUTROPHILS % (AUTO) 81.8 % (38.5-71.5); PLATELET COUNT (AUTO) 227 K/uL (179-408); RED BLOOD CELL COUNT(AUTO) 3.36 MIL/uL (3.63-4.92); WHITE BLOOD COUNT (AUTO) 12.9 K/uL (3.8-11.8)
[2020-06-16] MEDS: BLOOD SUGAR DIAGNOSTIC 1 EACH STRIP VI SCH ×4 (05:46→23:17)
[2020-06-16] MEDS: INSULIN REGULAR, HUMAN 300 UNIT/3 ML VIAL SQ PRN ×4 (05:51→23:17)
[2020-06-16 05:56] LABS: CREATININE 0.8 mg/dL (0.6-1.3); MAGNESIUM 2.2 mg/dL (1.8-2.4); PHOSPHOROUS 1.9 mg/dL (2.5-4.9); POTASSIUM 3.7 mmol/L (3.5-5.1)
[2020-06-16 05:58] LABS: MAGNESIUM 2.3 mg/dL (1.8-2.4)
[2020-06-16] MEDS ORDERED: TPN BAG #12 IV SCH ×2 (06:00)
--- NOTE | 2020-06-16 08:15 | NUR ---
Dr. Sanchez called via telephone, spoke about plan of care. Dr. Souleymane Sanchez to consult Dr. Bulmaro Sanchez for surgery.
[2020-06-16] MEDS ORDERED: FUROSEMIDE 40 MG/4 ML VIAL IV ONE (08:30)
--- NOTE | 2020-06-16 08:40 | NUR ---
Pulmonary services Dr. Craig in the unit, full report given to Dr. Craig. See order history for new orders. Dr. Craig at bedside assessing patient.
[2020-06-16] MEDS: NEOMY/BACITRA/POLYMYXIN B OINT UD PACKET TP SCH ×2 (08:57→20:13)
[2020-06-16] MEDS ORDERED: POTASSIUM PHOSPHATE MM 15 MMOL in IV NORMAL SALINE 250 ML IV ONE (09:00)
[2020-06-16] MEDS ORDERED: IV FAT EMULSIONS 20% 250 ML IV ONE (15:00)
[2020-06-16] MEDS ORDERED: TPN BAG #13 IV SCH ×4 (18:00)
[2020-06-17] VITALS (14 sets, daily range): BP systolic 100–139; BP diastolic 43–74
[2020-06-17] MEDS: ALBUTEROL SULFATE 2.5 MG/ 0.5 ML NEBU NEB PRN ×2 (03:12→07:47)
[2020-06-17] MEDS: IPRATROPIUM BROMIDE 0.5 MG/2.5 ML NEBU NEB SCH ×6 (03:12→22:30)
[2020-06-17 05:00] LABS: BASOPHILS % (AUTO) 0.4 % (0.0-2.0); EOSINOPHILS # (AUTO) 0.1 K/uL (0.0-0.7); EOSINOPHILS % (AUTO) 1.3 % (0.0-7.0); HEMATOCRIT 29.1 % (31.2-41.9); HEMOGLOBIN 9.6 g/dL (10.9-14.3); LYMPHOCYTES # (AUTO) 1.3 K/uL (20.0-40.0); LYMPHOCYTES % (AUTO) 11.4 % (20.5-51.5); MEAN CORPUSCULAR HEMOGLOBIN 28.3 uug (24.7-32.8); MEAN CORPUSCULAR HGB CONC 33 g/dL (32.3-35.6); MEAN CORPUSCULAR VOLUME 85.6 fL (75.5-95.3); MONOCYTES # (AUTO) 1.2 K/uL (2.0-10.0); MONOCYTES % (AUTO) 10.2 % (0.0-11.0); NEUTROPHILS # (AUTO) 8.7 K/uL (1.8-8.9); NEUTROPHILS % (AUTO) 76.7 % (38.5-71.5); PLATELET COUNT (AUTO) 281 K/uL (179-408); WHITE BLOOD COUNT (AUTO) 11.3 K/uL (3.8-11.8)
[2020-06-17 05:05] LABS: CREATININE 0.8 mg/dL (0.6-1.3); MAGNESIUM 1.8 mg/dL (1.8-2.4); PHOSPHOROUS 2.6 mg/dL (2.5-4.9); POTASSIUM 3.1 mmol/L (3.5-5.1)
[2020-06-17] MEDS: INSULIN REGULAR, HUMAN 300 UNIT/3 ML VIAL SQ PRN ×4 (05:50→23:53)
[2020-06-17] MEDS: BLOOD SUGAR DIAGNOSTIC 1 EACH STRIP VI SCH ×4 (05:51→23:51)
[2020-06-17] MEDS ORDERED: TPN BAG #14 IV SCH ×2 (06:00)
--- NOTE | 2020-06-17 06:00 | NUR ---
PICC Line dsg changed.
[2020-06-17] MEDS: NEOMY/BACITRA/POLYMYXIN B OINT UD PACKET TP SCH ×2 (08:54→20:21)
[2020-06-17] MEDS ORDERED: FUROSEMIDE 40 MG/4 ML VIAL IV ONE (09:00)
[2020-06-17] MEDS: POTASSIUM CHLORIDE 50 ML IV SCH ×4 (09:17→11:14)
[2020-06-17] MEDS ORDERED: POTASSIUM CHLORIDE 10 MEQ, LIDOCAINE-MPF 1% 1 ML in IV DEXTROSE 5% 100 ML IV SCH (09:30)
--- NOTE | 2020-06-17 13:00 | NUR ---
Pulmonary services, Dr. Craig in the unit to see and examine patient, report given no new orders received.
[2020-06-17] MEDS ORDERED: TPN BAG #15 IV SCH ×4 (18:00)
--- NOTE | 2020-06-17 19:53 | NUR ---
Pt rec'd on Lovell settings AC 12, VT 400, PEEP+5 and FIO2-28%. No resp. distress noted. Shiley 6 is patent and secure; B/U Shiley 6 and BVM are at bedside. Continue resp. therapy as ordered. Pt to be monitored, adm'd resp neb tx's per orders and PRN SX. Lovell alarm parameters have been checked and remain audible.
[2020-06-18] VITALS (10 sets, daily range): BP systolic 115–146; BP diastolic 54–82
[2020-06-18] MEDS ORDERED: Z GUARD REMEDY PASTE 57 GM TUBE TOP PRN (00:01)
[2020-06-18] MEDS: IPRATROPIUM BROMIDE 0.5 MG/2.5 ML NEBU NEB SCH ×4 (02:48→15:08)
[2020-06-18] MEDS: INSULIN REGULAR, HUMAN 300 UNIT/3 ML VIAL SQ PRN ×2 (05:09→13:14)
[2020-06-18] MEDS: BLOOD SUGAR DIAGNOSTIC 1 EACH STRIP VI SCH ×2 (05:10→13:12)
[2020-06-18 05:15] LABS: BASOPHILS # (AUTO) 0.1 K/uL (0.0-8.0); BASOPHILS % (AUTO) 0.4 % (0.0-2.0); EOSINOPHILS # (AUTO) 0.2 K/uL (0.0-0.7); EOSINOPHILS % (AUTO) 1.3 % (0.0-7.0); HEMATOCRIT 30.8 % (31.2-41.9); MEAN CORPUSCULAR HGB CONC 33 g/dL (32.3-35.6); MEAN CORPUSCULAR VOLUME 86.2 fL (75.5-95.3); MONOCYTES # (AUTO) 1.2 K/uL (2.0-10.0); MONOCYTES % (AUTO) 9.9 % (0.0-11.0); NEUTROPHILS # (AUTO) 10.1 K/uL (1.8-8.9); NEUTROPHILS % (AUTO) 80.4 % (38.5-71.5); PLATELET COUNT (AUTO) 321 K/uL (179-408); RED BLOOD CELL COUNT(AUTO) 3.57 MIL/uL (3.63-4.92); WHITE BLOOD COUNT (AUTO) 12.6 K/uL (3.8-11.8)
[2020-06-18 05:25] LABS: CREATININE 0.9 mg/dL (0.6-1.3); MAGNESIUM 1.8 mg/dL (1.8-2.4); PHOSPHOROUS 2.7 mg/dL (2.5-4.9); POTASSIUM 3.5 mmol/L (3.5-5.1)
[2020-06-18] MEDS ORDERED: TPN BAG #16 IV SCH ×2 (06:00)
--- NOTE | 2020-06-18 07:58 | NUR ---
Pulmonary services, Dr. Sparks in the unit to see and examine patient, full report given see order hx.
[2020-06-18] MEDS: NEOMY/BACITRA/POLYMYXIN B OINT UD PACKET TP SCH (08:04)
[2020-06-18] MEDS ORDERED: IV FAT EMULSIONS 20% 250 ML IV SCH (14:00)
[2020-06-18] MEDS ORDERED: [UNRECOGNIZED DRUG - OTHER] IV ONE (14:30)
--- NOTE | 2020-06-18 15:30 | NUR ---
Spoke with Lexus Carrizales Per , medically cleared for discharge back to [facility]. Telephone order placed for discharge.
--- NOTE | 2020-06-18 16:23 | NUR ---
Telephone report given to Mike Torres r.n notified of tpn and lipids running. Patient will be transfer with picc line LUE 3L. no skin issues. Vitals of HR 75, 115/60, 99% rr 21. and body temp of 98.5.
--- NOTE | 2020-06-18 16:35 | NUR ---
PATIENT TAKEN UP TO SUBACUTE VIA OWN BED. TRANSFER DONE BY RN. SOLARES AND RT TEAM. LEFT UNIT WITH PICC LINE IN PLACE AND TPN AND LIPID CLAMPED. CARI ROTH. Addendum: 06/18/20 at 1715 by THONY GRAHAM RN NO DISTRESS NOTED.
[2020-06-18] MEDS ORDERED: TPN BAG #17 IV SCH ×4 (18:00)
[2020-06-19] MEDS ORDERED: TPN BAG #18 IV PRN ×2 (06:00)
[2020-06-19] MEDS ORDERED: TPN BAG #18 IV SCH ×2 (06:00)
[2020-08-08] MEDS ORDERED: MERO500V21 IV (17:45)
[2020-08-08] MEDS ORDERED: FLUCONAZOLE IV (17:45)
[2020-08-08] MEDS ORDERED: FAT EMULSIONS 20% IV (17:45)
[2020-08-08] MEDS ORDERED: DEXT15DR6 EACHEYE (17:45)
[2020-08-08] MEDS ORDERED: INSU100I19 SQ (17:45)
[2020-08-08] MEDS ORDERED: FURO20TA90 IV (17:45)
[2020-08-08] MEDS ORDERED: PANTOPRAZOLE IV (17:45)
[2020-08-08] MEDS ORDERED: VANC1PIG IV (17:45)
== END 2020-06-18 17:22 | DRG 327 ==
LOC: TELE3 09:24 → TELE-TD3 09:35 → CCU 06-14 20:55
PROVIDERS: ADMIT Internal Medicine Nephrology; ATTEND Internal Medicine Nephrology
PROC: 5A1955Z Respiratory Ventilation, Greater than 96 Consecutive Hours (ICD-10-PCS; principal; 2020-06-13)
PROC: 0DQ68ZZ Repair Stomach, Via Natural or Artificial Opening Endoscopic (ICD-10-PCS; 2020-06-14)
PROC: 0WQF4ZZ Repair Abdominal Wall, Percutaneous Endoscopic Approach (ICD-10-PCS; 2020-06-14)
DX: K31.6 Fistula of stomach and duodenum (principal); G93.1 Anoxic brain damage, not elsewhere classified; J96.11 Chronic respiratory failure with hypoxia; J96.12 Chronic respiratory failure with hypercapnia; Z99.11 Dependence on respirator [ventilator] status; I11.0 Hypertensive heart disease with heart failure; I50.9 Heart failure, unspecified; D64.9 Anemia, unspecified; E03.9 Hypothyroidism, unspecified; E11.9 Type 2 diabetes mellitus without complications; E78.5 Hyperlipidemia, unspecified; E83.42 Hypomagnesemia; E83.51 Hypocalcemia; E87.6 Hypokalemia; E83.39 Other disorders of phosphorus metabolism; G40.909 Epilepsy, unspecified, not intractable, without status epilepticus; F03.90 Unspecified dementia, unspecified severity, without behavioral disturbance, psychotic disturbance, mood disturbance, and anxiety; I25.10 Atherosclerotic heart disease of native coronary artery without angina pectoris; Z86.74 Personal history of sudden cardiac arrest; Z88.0 Allergy status to penicillin; Z95.5 Presence of coronary angioplasty implant and graft; E66.9 Obesity, unspecified; Z68.35 Body mass index [BMI] 35.0-35.9, adult; L89.319 Pressure ulcer of right buttock, unspecified stage; I35.0 Nonrheumatic aortic (valve) stenosis; K29.70 Gastritis, unspecified, without bleeding; E05.90 Thyrotoxicosis, unspecified without thyrotoxic crisis or storm; R13.10 Dysphagia, unspecified; Z93.0 Tracheostomy status; Z93.1 Gastrostomy status
CPT/HCPCS: 36415; 36600; 71045; 83735; 84100; 84478; 85025; 93005; 94002; 94003; 94640; 94664; A4217; A4663; G0378; J1815; J1940; J2001; J2370; J3010; J3475; J3480; J3490; J3590; J7030; J7050; J7060